=== PATIENT | female | born 1960 | race Caucasian/White ===

== ENCOUNTER 2019-08-23 20:50 | Observation (INO) | payer OTHER ==
[~2019-08-23] VITALS: Ht 172.7 cm; Wt 79.5 kg
[2019-08-23] MEDS ORDERED: DULO60CA6 PO (21:11)
[2019-08-23] MEDS ORDERED: METO50TA4 PO (21:11)
[2019-08-23] MEDS ORDERED: [UNRECOGNIZED DRUG - OTHER] (21:12)
[2019-08-23] MEDS ORDERED: IV NORMAL SALINE 1000ML BAG 1,000 ML IV ONE (21:15)
[2019-08-23 21:27] LABS: BASO # 0.1 x10^3/uL (0.0-0.2); BASO % 1 % (0-3); EOS # 0.4 x10^3/uL (0.0-0.7); EOS % 5 % (0-3); HEMATOCRIT 36.6 % (36.0-47.0); HEMOGLOBIN 12.4 g/dL (12.0-15.5); LYMPH # 3.4 x10^3/uL (1.0-4.8); LYMPH % 35 % (24-48); MEAN CORPUSCULAR HEMOGLOBIN 32 pg (25-35); MEAN CORPUSCULAR HGB CONC 34 g/dL (31-37); MEAN CORPUSCULAR VOLUME 95 fL (79-100); MONO # 0.8 x10^3/uL (0.0-1.1); MONO % 8 % (0-9); NEUT # 4.9 x10^3/uL (1.8-7.7); NEUT % 51 % (31-73); PLATELET COUNT 310 x10^3/uL (140-400); RED BLOOD COUNT 3.87 x10^6/uL (3.50-5.40); RED CELL DISTRIBUTION WIDTH 13.1 % (11.5-14.5); WHITE BLOOD COUNT 9.7 x10^3/uL (4.0-11.0)
[2019-08-23 21:36] LABS: PROTHROMBIN TIME PATIENT 12.4 SEC (11.7-14.0)
[2019-08-23 21:42] LABS: ALBUMIN 3.7 g/dL (3.4-5.0); ALBUMIN/GLOBULIN RATIO 1.1 (1.0-1.7); CALCIUM 8.7 mg/dL (8.5-10.1); GFR 56.6; TOTAL BILIRUBIN 0.3 mg/dL (0.2-1.0); TOTAL PROTEIN 7.1 g/dL (6.4-8.2)
[2019-08-23 21:44] LABS: POTASSIUM 2.9 mmol/L (3.5-5.1)
[2019-08-23] MEDS ORDERED: IV RINGERS,LACTATED 1000ML 1,000 ML IV SCH (22:11)
--- NOTE | 2019-08-23 22:11 | PDOC1 ---
History and Physical Date of Admission Date of Admission DATE: 08/23/19 TIME: 22:04 Identification/Chief Complaint Chief Complaint vaginal bleeding Source Source: Patient History of Present Illness History of Present Illness 59 y/o presented to ED with c/o heavy vaginal bleeding that occurred during coitus. She reports new partner and using silicone device during coitus and then sudden pain with large amount of bleeding. She denies any rectal penetration or instrumentation. No fever, chills or SOB. She reports dizziness and weakness. Past Medical History Cardiovascular: HTN Past Surgical History Past Surgical History: Other (D&C and LPSC resection endometriosis) Current Medications Current Medications Current Medications Sodium Chloride 1,000 ml @ 1,000 mls/hr 1X ONCE IV Last administered on 08/23/19at 21:20; Start 08/23/19 at 21:15; Stop 08/23/19 at 22:14 Active Scripts Active Reported [Estrogen Insert [id number]] Cymbalta (Duloxetine Hcl) 60 Mg Capsule.dr 1 Cap PO DAILY Toprol XL (Metoprolol Succinate) 50 Mg Tab.er.24h 50 Mg PO DAILY Allergies Allergies: Coded Allergies: nitrofurantoin (Verified Allergy, Intermediate, HIVES, 08/23/19) Tetracyclines (Verified Adverse Reaction, Mild, "REALLY BAD GAS", 08/23/19) ROS General: YES: Fatigue, Malaise; No: Chills, Night Sweats, Appetite, Other PSYCHOLOGICAL ROS: YES: Anxiety; No: Behavioral Disorder, Concentration difficultie, Decreased libido, Depression, Disorientation, Hallucinations, Hostility, Irritablity, Memory difficulties, Mood Swings, Obsessive thoughts, Physical abuse, Sexual abuse, S leep disturbances, Suicidal ideation, Other Eyes: Yes Uses glasses; No Blurry vision, No Decreased vision, No Double vision, No Dry eyes, No Excessive tearing, No Eye Pain, No Itchy Eyes, No Loss of vision, No P hotophobia, No Scotomata, No Uses contacts, No Other HEENT: No: Heacaches, Visual Changes, Hearing change, Nasal congestion, Nasal discharge, Oral lesions, Sinus pain, Sore Throat, Epistaxis, Sneezing, Snoring, Tinnitus, Vertigo, Vocal changes, Other ALLERGY AND IMMUNOLOGY: No: Hives, Insect Bite Sensitivity, Itchy/Watery Eyes, Nasal Congestion, Post Nasal Drip, Seasonal Allergies, Other Hematological and Lymphatic: No: Bleeding Problems, Blood Clots, Blood Transfusions, Brusing, Night Sweats, Pallor, Swollen Lymph Nodes, Other ENDOCRINE: No: Breast Changes, Galactorrhea, Hair Pattern Changes, Hot Flashes, Malaise/lethargy, Mood Swings, Palpitations, Polydipsia/polyuria, Skin Changes, Temperature Intolerance, Unexpected Weight Changes, Other Breast: No New/Changing Breast Lumps, No Nipple changes, No Nipple discharge, No Other Respiratory: No: Cough, Hemoptysis, Orthopnea, Pleuritic Pain, Shortness of breath, SOB with excertion, Sputum Changes, Stridor, Tachypnea, Wheezing, Other Cardiovascular: No Chest Pain, No Palpitations, No Orthopnea, No Paroxysmal Noc. Dyspnea, No Edema, No Lt Headedness, No Other Genitourinary: YES Pain, YES Other (vaginal bleeding) Skin: No Dry Skin, No Eczema, No Hair Changes, No Lumps, No Mole Changes, No Mottling, No Nail Changes, No Pruritus, No Rash, No Skin Lesion Changes, No Other, No Acne Physical Exam General: Alert, Oriented X3, Cooperative, moderate distress HEENT: Atraumatic Heart: S1S2 Abdomen: Normal bowel sounds, Soft, No tenderness, No masses Rectal Exam: other (nml) PELVIC: Nml ext genitalia, Nml ext vulva, Other (Left vaginal sidewall laceration. Packed with vaginal packing. No extension into abd cavity or retroperitoneal area.) Psych/Mental Status: Mental status NL Labs Labs Laboratory Tests Test 08/23/19 21:00 White Blood Count 9.7 x10^3/uL (4.0-11.0) Red Blood Count 3.87 x10^6/uL (3.50-5.40) Hemoglobin 12.4 g/dL (12.0-15.5) Hematocrit 36.6 % (36.0-47.0) Mean Corpuscular Volume 95 fL (79-100) Mean Corpuscular Hemoglobin 32 pg (25-35) Mean Corpuscular Hemoglobin Concent 34 g/dL (31-37) Red Cell Distribution Width 13.1 % (11.5-14.5) Platelet Count 310 x10^3/uL (140-400) Neutrophils (%) (Auto) 51 % (31-73) Lymphocytes (%) (Auto) 35 % (24-48) Monocytes (%) (Auto) 8 % (0-9) Eosinophils (%) (Auto) 5 % (0-3) Basophils (%) (Auto) 1 % (0-3) Neutrophils # (Auto) 4.9 x10^3/uL (1.8-7.7) Lymphocytes # (Auto) 3.4 x10^3/uL (1.0-4.8) Monocytes # (Auto) 0.8 x10^3/uL (0.0-1.1) Eosinophils # (Auto) 0.4 x10^3/uL (0.0-0.7) Basophils # (Auto) 0.1 x10^3/uL (0.0-0.2) Prothrombin Time 12.4 SEC (11.7-14.0) Prothromb Time International Ratio 1.0 (0.8-1.1) Activated Partial Thromboplast Time 23 SEC (24-38) Sodium Level 140 mmol/L (136-145) Potassium Level 2.9 mmol/L (3.5-5.1) Chloride Level 105 mmol/L (98-107) Carbon Dioxide Level 23 mmol/L (21-32) Anion Gap 12 (6-14) Blood Urea Nitrogen 14 mg/dL (7-20) Creatinine 1.0 mg/dL (0.6-1.0) Estimated GFR (Cockcroft-Gault) 56.6 BUN/Creatinine Ratio 14 (6-20) Glucose Level 146 mg/dL (70-99) Calcium Level 8.7 mg/dL (8.5-10.1) Total Bilirubin 0.3 mg/dL (0.2-1.0) Aspartate Amino Transf (AST/SGOT) 19 U/L (15-37) Alanine Aminotransferase (ALT/SGPT) 27 U/L (14-59) Alkaline Phosphatase 77 U/L (46-116) Total Protein 7.1 g/dL (6.4-8.2) Albumin 3.7 g/dL (3.4-5.0) Albumin/Globulin Ratio 1.1 (1.0-1.7) Ethyl Alcohol Level < 10 mg/dL (0-10) Laboratory Tests Test 08/23/19 21:00 White Blood Count 9.7 x10^3/uL (4.0-11.0) Red Blood Count 3.87 x10^6/uL (3.50-5.40) Hemoglobin 12.4 g/dL (12.0-15.5) Hematocrit 36.6 % (36.0-47.0) Mean Corpuscular Volume 95 fL (79-100) Mean Corpuscular Hemoglobin 32 pg (25-35) Mean Corpuscular Hemoglobin Concent 34 g/dL (31-37) Red Cell Distribution Width 13.1 % (11.5-14.5) Platelet Count 310 x10^3/uL (140-400) Neutrophils (%) (Auto) 51 % (31-73) Lymphocytes (%) (Auto) 35 % (24-48) Monocytes (%) (Auto) 8 % (0-9) Eosinophils (%) (Auto) 5 % (0-3) Basophils (%) (Auto) 1 % (0-3) Neutrophils # (Auto) 4.9 x10^3/uL (1.8-7.7) Lymphocytes # (Auto) 3.4 x10^3/uL (1.0-4.8) Monocytes # (Auto) 0.8 x10^3/uL (0.0-1.1) Eosinophils # (Auto) 0.4 x10^3/uL (0.0-0.7) Basophils # (Auto) 0.1 x10^3/uL (0.0-0.2) Prothrombin Time 12.4 SEC (11.7-14.0) Prothromb Time International Ratio 1.0 (0.8-1.1) Activated Partial Thromboplast Time 23 SEC (24-38) Sodium Level 140 mmol/L (136-145) Potassium Level 2.9 mmol/L (3.5-5.1) Chloride Level 105 mmol/L (98-107) Carbon Dioxide Level 23 mmol/L (21-32) Anion Gap 12 (6-14) Blood Urea Nitrogen 14 mg/dL (7-20) Creatinine 1.0 mg/dL (0.6-1.0) Estimated GFR (Cockcroft-Gault) 56.6 BUN/Creatinine Ratio 14 (6-20) Glucose Level 146 mg/dL (70-99) Calcium Level 8.7 mg/dL (8.5-10.1) Total Bilirubin 0.3 mg/dL (0.2-1.0) Aspartate Amino Transf (AST/SGOT) 19 U/L (15-37) Alanine Aminotransferase (ALT/SGPT) 27 U/L (14-59) Alkaline Phosphatase 77 U/L (46-116) Total Protein 7.1 g/dL (6.4-8.2) Albumin 3.7 g/dL (3.4-5.0) Albumin/Globulin Ratio 1.1 (1.0-1.7) Ethyl Alcohol Level < 10 mg/dL (0-10) VTE Prophylaxis Ordered VTE Prophylaxis Devices: No VTE Pharmacological Prophylaxi: No Assessment/Plan Assessment/Plan A: Vaginal wall laceration secondary to trauma P: Surgical repair of laceration in OR. MARIJA MANJARREZ Jr, MD Aug 23, 2019 22:11
[2019-08-23] MEDS ORDERED: MORPHINE SULFATE 2 MG/ML VIAL. IV PRN (22:15)
[2019-08-23] MEDS ORDERED: ONDANSETRON PF 4 MG/2 ML VIAL. IV PRN ×2 (22:15→23:00)
[2019-08-23] MEDS ORDERED: PROCHLORPERAZINE 10 MG/2 ML VIAL. IV PRN (22:15)
[2019-08-23] MEDS ORDERED: fentaNYL PF VIAL 100 MCG/2 ML VIAL IV PRN ×2 (22:15)
[2019-08-23] MEDS ORDERED: HYDROmorphone 2 MG/ML VIAL IV PRN (22:15)
--- NOTE | 2019-08-23 22:21 | RAD ---
STUDY: US PELVIS COMPLETE HISTORY: Vaginal bleeding. COMPARISON: None. TECHNIQUE: Complete pelvic ultrasound was performed with transabdominal and transvaginal probes. FINDINGS: The uterus measures 7.2 x 3.9 x 2.8 cm. The endometrial echo is difficult to delineate but appears to measure around 5 mm. Doppler assessment at the endometrium reveals no overt hypervascularity. No appreciable fluid within the endometrial canal but there does appear to be complex material at the location of the cervical canal. Neither ovary was able to be visualized. Suspected complex free fluid within the pelvis. IMPRESSION: Neither ovary was able to be visualized. Assessment of the uterus was limited though the endometrium appears to be at the upper limits of normal for patient age at 5 mm. There is the suggestion of complex debris within the cervical canal and within the deep pelvis of uncertain etiology. Electronically signed by: JOSEFINA SAUCEDO MD (08/23/2019 10:18 PM) [id number]
[2019-08-23] MEDS ORDERED: MORPHINE SULFATE 4 MG/ML VIAL. IV ONE (22:30)
[2019-08-23 22:38] LABS: HEMATOCRIT 27.3 % (36.0-47.0); HEMOGLOBIN 9.2 g/dL (12.0-15.5)
[2019-08-23] MEDS ORDERED: MORPHINE SULFATE 4 MG/ML VIAL. IV PRN (23:00)
--- NOTE | 2019-08-23 23:17 | PHYS DOC ---
Past Medical History Past Medical History: Depression, Fibromyalgia, Other Additional Past Medical Histor: ABNORMAL PAP 2019 "WATCHING IT" Past Surgical History: Other Additional Past Surgical Histo: CERVICAL BX 2019 Smoking Status: Never Smoker Alcohol Use: None Adult General Chief Complaint Chief Complaint: VAGINAL BLEEDING HPI HPI Patient is a 59 year old female with history of hypertension who presents the ED today complaining of vaginal bleeding that began while having sex. Patient reports having a new partner and using a silicone device during sex. Denies any rectal sex. Denies any rectal penetration. Denies any abdominal pain. Denies any nausea or vomiting. Review of Systems Review of Systems Constitutional: Denies fever or chills [] Eyes: Denies change in visual acuity, redness, or eye pain [] HENT: Denies nasal congestion or sore throat [] Respiratory: Denies cough or shortness of breath [] Cardiovascular: No additional information not addressed in HPI [] GI: Denies abdominal pain, nausea, vomiting, bloody stools or diarrhea [] Pelvic-reports vaginal bleeding : Denies dysuria or hematuria [] Musculoskeletal: Denies back pain or joint pain [] Integument: Denies rash or skin lesions [] Neurologic: Denies headache, focal weakness or sensory changes [] All other systems were reviewed and found to be within normal limits, except as documented in this note. Current Medications Current Medications Current Medications Medications (Trade) Dose Ordered Sig/Zenon Start Time Stop Time Status Last Admin Dose Admin Fentanyl Citrate (Fentanyl 2ml Vial) 50 mcg PRN Q5MIN PRN 08/23/19 22:15 08/24/19 22:14 Hydromorphone HCl (Dilaudid) 0.5 mg PRN Q10MIN PRN 08/23/19 22:15 08/24/19 22:14 Morphine Sulfate (Morphine Sulfate) 1 mg PRN Q10MIN PRN 08/23/19 22:15 08/24/19 22:14 Ondansetron HCl (Zofran) 4 mg PRN Q6HRS PRN 08/23/19 22:15 08/24/19 22:14 08/23/19 22:58 4 MG Prochlorperazine Edisylate (Compazine) 5 mg PACU PRN PRN 08/23/19 22:15 08/24/19 22:14 Ringer's Solution 1,000 ml @ 30 mls/hr Q24H 08/23/19 22:11 08/24/19 10:10 Sodium Chloride 1,000 ml @ 1,000 mls/hr 1X ONCE 08/23/19 21:15 08/23/19 22:14 DC 08/23/19 21:20 1,000 MLS/HR Allergies Allergies Allergies Coded Allergies Type Severity Reaction Last Updated Verified nitrofurantoin Allergy Intermediate HIVES 08/23/19 Yes Tetracyclines Adverse Reaction Mild "REALLY BAD GAS" 08/23/19 Yes Physical Exam Physical Exam Constitutional: Well developed, well nourished, no acute distress, non-toxic appearance. [] HENT: Normocephalic, atraumatic, bilateral external ears normal, oropharynx moist, no oral exudates, nose normal. [] Eyes: PERRLA, EOMI, conjunctiva normal, no discharge. [] Neck: Normal range of motion, no tenderness, supple, no stridor. [] Cardiovascular:Heart rate regular rhythm, no murmur [] Lungs & Thorax: Bilateral breath sounds clear to auscultation [] Abdomen: Bowel sounds normal, soft, no tenderness, no masses, no pulsatile mas ses. [] Pelvic exam Patient is covered with moderate amount of blood on high exterior vagina and her paper chucks. Pelvic exam was attempted, speculum was presented into the vaginal vault, there is moderate amount of blood pouring. DREDGE DECKHAND was consulted right away. Skin: Warm, dry, no erythema, no rash. [] Back: No tenderness, no CVA tenderness. [] Extremities: No tenderness, no cyanosis, no clubbing, ROM intact, no edema. [] Neurologic: Alert and oriented X 3, normal motor function, normal sensory function, no focal deficits noted. [] Psychologic: Affect normal, judgement normal, mood normal. [] Current Patient Data Vital Signs Vital Signs Date Time Temp Pulse Resp B/P (MAP) Pulse Ox O2 Delivery O2 Flow Rate FiO2 08/23/19 20:53 98.6 91 24 160/88 (112) 99 Room Air 98.6 Lab Values Laboratory Tests Test 08/23/19 21:00 White Blood Count 9.7 x10^3/uL (4.0-11.0) Red Blood Count 3.87 x10^6/uL (3.50-5.40) Hemoglobin 12.4 g/dL (12.0-15.5) Hematocrit 36.6 % (36.0-47.0) Mean Corpuscular Volume 95 fL (79-100) Mean Corpuscular Hemoglobin 32 pg (25-35) Mean Corpuscular Hemoglobin Concent 34 g/dL (31-37) Red Cell Distribution Width 13.1 % (11.5-14.5) Platelet Count 310 x10^3/uL (140-400) Neutrophils (%) (Auto) 51 % (31-73) Lymphocytes (%) (Auto) 35 % (24-48) Monocytes (%) (Auto) 8 % (0-9) Eosinophils (%) (Auto) 5 % (0-3) H Basophils (%) (Auto) 1 % (0-3) Neutrophils # (Auto) 4.9 x10^3/uL (1.8-7.7) Lymphocytes # (Auto) 3.4 x10^3/uL (1.0-4.8) Monocytes # (Auto) 0.8 x10^3/uL (0.0-1.1) Eosinophils # (Auto) 0.4 x10^3/uL (0.0-0.7) Basophils # (Auto) 0.1 x10^3/uL (0.0-0.2) Prothrombin Time 12.4 SEC (11.7-14.0) Prothrombin Time INR 1.0 (0.8-1.1) Activated Partial Thromboplast Time 23 SEC (24-38) L Sodium Level 140 mmol/L (136-145) Potassium Level 2.9 mmol/L (3.5-5.1) *L Chloride Level 105 mmol/L (98-107) Carbon Dioxide Level 23 mmol/L (21-32) Anion Gap 12 (6-14) Blood Urea Nitrogen 14 mg/dL (7-20) Creatinine 1.0 mg/dL (0.6-1.0) Estimated GFR (Cockcroft-Gault) 56.6 BUN/Creatinine Ratio 14 (6-20) Glucose Level 146 mg/dL (70-99) H Calcium Level 8.7 mg/dL (8.5-10.1) Total Bilirubin 0.3 mg/dL (0.2-1.0) Aspartate Amino Transferase (AST) 19 U/L (15-37) Alanine Aminotransferase (ALT) 27 U/L (14-59) Alkaline Phosphatase 77 U/L (46-116) Total Protein 7.1 g/dL (6.4-8.2) Albumin 3.7 g/dL (3.4-5.0) Albumin/Globulin Ratio 1.1 (1.0-1.7) Ethyl Alcohol Level < 10 mg/dL (0-10) Laboratory Tests 08/23/19 21:00 Laboratory Tests 08/23/19 21:00 EKG EKG [] Radiology/Procedures Radiology/Procedures [] Course & Med Decision Making Course & Med Decision Making Pertinent Labs and Imaging studies reviewed. (See chart for details) This is a 59-year-old female patient presenting to the ED today with vaginal bleeding that began while having sex. See HPI. Patient arrives in the ED with moderate amount of bleeding. Consulted DREDGE DECKHAND right away. 2133 Dr. Hsieh packed her vagina and will take her to surgery. Patient was given 2 L of IV fluid. Initial Hemoglobin of 12.4, HCT 36.6, type and screen was done CMP with K of 2.9 NS with K ordered Repeat H&H 9.2, 27.3 Dr. Alberto aware of his condition. Dragon Disclaimer Dragon Disclaimer This electronic medical record was generated, in whole or in part, using a voice recognition dictation system. Departure Departure Impression: Primary Impression: Vaginal bleeding Additional Impression: Vaginal laceration Disposition: 09 ADMITTED INPATIENT Condition: STABLE Referrals: NO PCP (PCP) Problem Qualifiers Additional Impression: Vaginal laceration Vaginal laceration type: obstetric Perineal laceration presence: with perineal laceration Perineal laceration degree: laceration of unspecified degree Qualified Codes: O70.9 - Perineal laceration during delivery, unspecified PATOSYDNIEALVIN [employer]TER Aug 23, 2019 23:17
[2019-08-23] MEDS ORDERED: PROPOFOL 20 ML IV ONE (23:52)
[2019-08-23] MEDS ORDERED: SEVOFLURANE 31 TO 60 MINUTES. IH ONE (23:52)
[2019-08-23] MEDS ORDERED: fentaNYL PF VIAL 100 MCG/2 ML VIAL ONE (23:52)
[2019-08-23] MEDS ORDERED: DEXAMETHASONE SOD PHOS 4 MG/ML VIAL ONE (23:53)
[2019-08-23] MEDS ORDERED: LIDOCAINE 2% PF 5 ML VIAL. ONE (23:53)
[2019-08-23] MEDS ORDERED: ONDANSETRON PF 4 MG/2 ML VIAL. ONE (23:53)
[2019-08-23] MEDS ORDERED: SCOPOLAMINE 1.5MG PATCH. TD ONE (23:59)
[2019-08-24] VITALS (18 sets, daily range): BP systolic 117–155; BP diastolic 46–84
[2019-08-24] MEDS ORDERED: FAMOTIDINE 20 MG/2 ML VIAL ONE
--- NOTE | 2019-08-24 00:52 | PDOC ---
BRIEF OPERATIVE NOTE Date: Aug 24, 2019 Pre-Op Diagnosis Vaginal sidewall laceration Post-Op Diagnosis SAme Procedure Performed Vaginal Laceration Repair Surgeon Dr. Hsieh Anesthesia Type: General Blood Loss 1, 500 ml prior to surgery. 400 ml during surgery. Specimens Obtained none Findings vaginal sidewall laceration; Left side. Complications none Operative Note see dictation MARIJA HSIEH Jr, MD Aug 24, 2019 00:52
[2019-08-24] MEDS ORDERED: ONDANSETRON PF 4 MG/2 ML VIAL. IV PRN (01:00)
[2019-08-24] MEDS ORDERED: SIMETHICONE 80 MG TAB.CHEW PO PRN (01:00)
[2019-08-24] MEDS ORDERED: OPIUM/BELLADONNA 30/16.2MG SUPP.RECT. PR PRN (01:00)
[2019-08-24] MEDS ORDERED: oxyCODONE/APAP 5/325 1 TAB TABLET PO PRN (01:00)
[2019-08-24] MEDS ORDERED: 0.9 % SODIUM CHLORIDE 10 ML DISP.SYRIN. IV PRN (01:00)
[2019-08-24] MEDS ORDERED: diphenhydrAMINE 50 MG/ML VIAL IV PRN (01:00)
[2019-08-24] MEDS ORDERED: PROCHLORPERAZINE 10 MG/2 ML VIAL. IV PRN (01:00)
[2019-08-24] MEDS ORDERED: diphenhydrAMINE HCL 25 MG CAPSULE PO PRN (01:00)
[2019-08-24] MEDS ORDERED: KETOROLAC 30 MG/ML VIAL. IV PRN (01:00)
[2019-08-24] MEDS ORDERED: ZOLPIDEM 5 MG TABLET. PO PRN (01:00)
[2019-08-24] MEDS ORDERED: CALCIUM CARBONATE 500 MG TAB.CHEW PO PRN (01:00)
[2019-08-24] MEDS ORDERED: DEXTROSE 50% 25 GM / 50ML DISP.SYRIN. IV PRN (01:00)
--- NOTE | 2019-08-24 01:22 | OP ---
DATE OF SURGERY: 08/23/2019 PREOPERATIVE DIAGNOSIS: Vaginal sidewall laceration. POSTOPERATIVE DIAGNOSIS: Vaginal sidewall laceration. PROCEDURE: Vaginal laceration repair. SURGEON: Marija Hsieh MD ANESTHESIA: GETA. ESTIMATED BLOOD LOSS: 400 mL during surgery. There was about 1500 mL blood loss prior to surgery. FINDINGS: Vaginal sidewall laceration on the left side. SUMMARY: A 59-year-old female who had a traumatic experience with colitis involving vaginal laceration, which she had a large amount of bleeding. She presented to the Emergency Department, had about 1500 mL of blood loss just in the Emergency Department during the evaluation. She was counseled on risks, benefits and expectations of surgical repair of vaginal sidewall laceration and further examination under anesthesia and voiced clear understanding to proceed. DESCRIPTION OF PROCEDURE: The patient was taken to surgery suite and placed in dorsal lithotomy position. She was prepped with Betadine solution and draped in sterile fashion. After adequate anesthesia, weighted speculum and curved Oleksandr placed vaginally. The lesion was found on the left vaginal sidewall in which two [id number] sutures were placed to control the active bleeding. Once the bleeding was controlled continuous suture was used with 2-0 Vicryl in a running fashion to repair the vaginal sidewall laceration. Two additional [id number] sutures were placed to better reapproximate the vaginal sidewall. The remainder of the vaginal vault was explored and did not find any lacerations or trauma. Perianal area was explored and there was no evidence of trauma or bleeding. Moist vaginal packing was placed. The patient tolerated the procedure well and was taken to recovery room in stable condition. Sponge and needle count correct x 3. MARIJA HSIEH MD DR: BONNIE/sandra JOB#: [id number] / [id number]
[2019-08-24] MEDS ORDERED: ALBUMIN HUMAN 5% 500 ML IV ONE ×2 (01:27→01:30)
--- NOTE | 2019-08-24 01:31 | PDOC ---
Date and Time POst op 45 minutes. BP declined to 89/44, no heart rate increase (on beta susy). No active bleeding. Believe she is still hypovolemic. Will Rx with albumin and after it has infused recheck Hb. Current Medications Current Medications Sodium Chloride 1,000 ml @ 1,000 mls/hr 1X ONCE IV Last administered on 08/23/19at 21:20; Start 08/23/19 at 21:15; Stop 08/23/19 at 22:14; Status DC Ondansetron HCl (Zofran) 4 mg PRN Q6HRS PRN IV NAUSEA/VOMITING Last administered on 08/23/19at 22:58; Start 08/23/19 at 22:15; Stop 08/24/19 at 22:14 Fentanyl Citrate (Fentanyl 2ml Vial) 25 mcg PRN Q5MIN PRN IV MILD PAIN 1-3; Start 08/23/19 at 22:15; Stop 08/24/19 at 22:14 Fentanyl Citrate (Fentanyl 2ml Vial) 50 mcg PRN Q5MIN PRN IV MODERATE TO SEVERE PAIN; Start 08/23/19 at 22:15; Stop 08/24/19 at 22:14 Morphine Sulfate (Morphine Sulfate) 1 mg PRN Q10MIN PRN IV SEVERE PAIN 7-10; Start 08/23/19 at 22:15; Stop 08/24/19 at 22:14 Ringer's Solution 1,000 ml @ 30 mls/hr Q24H IV Last administered on 08/24/19at 01:19; Start 08/23/19 at 22:11; Stop 08/24/19 at 10:10 Hydromorphone HCl (Dilaudid) 0.5 mg PRN Q10MIN PRN IV SEV PAIN, Second choice; Start 08/23/19 at 22:15; Stop 08/24/19 at 22:14 Prochlorperazine Edisylate (Compazine) 5 mg PACU PRN PRN IV NAUSEA, MRX1; Start 08/23/19 at 22:15; Stop 08/24/19 at 22:14 Morphine Sulfate (Morphine Sulfate) 4 mg 1X ONCE IV Last administered on 08/23/19at 22:55; Start 08/23/19 at 22:30; Stop 08/23/19 at 22:41; Status DC Ondansetron HCl (Zofran) 4 mg PRN Q8HRS PRN IV NAUSEA/VOMITING; Start 08/23/19 at 23:00; Stop 08/24/19 at 22:59 Morphine Sulfate (Morphine Sulfate) 4 mg PRN Q2HR PRN IV PAIN; Start 08/23/19 at 23:00; Stop 08/24/19 at 22:59 Potassium Chloride/Sodium Chloride 1,000 ml @ 75 mls/hr 1X ONCE IV ; Start 08/23/19 at 23:00; Stop 08/24/19 at 12:19 Fentanyl Citrate (Fentanyl 2ml Vial) 100 mcg STK-MED ONCE .ROUTE ; Start 08/23/19 at 23:52; Stop 08/23/19 at 23:53; Status DC Sevoflurane (Ultane) 30 ml STK-MED ONCE IH ; Start 08/23/19 at 23:52; Stop 08/23/19 at 23:53; Status DC Propofol 20 ml @ As Directed STK-MED ONCE IV ; Start 08/23/19 at 23:52; Stop 08/23/19 at 23:53; Status DC Dexamethasone Sodium Phosphate (Decadron) 4 mg STK-MED ONCE .ROUTE ; Start 08/23/19 at 23:53; Stop 08/23/19 at 23:53; Status DC Ondansetron HCl (Zofran) 4 mg STK-MED ONCE .ROUTE ; Start 08/23/19 at 23:53; St op 08/23/19 at 23:53; Status DC Lidocaine HCl (Lidocaine Pf 2% Vial) 5 ml STK-MED ONCE .ROUTE ; Start 08/23/19 at 23:53; Stop 08/23/19 at 23:53; Status DC Scopolamine (Transderm-Scop) 1 patch STK-MED ONCE TD ; Start 08/23/19 at 23:59; Stop 08/24/19 at 00:00; Status DC Famotidine (Pepcid Vial) 20 mg STK-MED ONCE .ROUTE ; Start 08/24/19 at 00:00; Stop 08/24/19 at 00:00; Status DC Calcium Carbonate/ Glycine (Tums) 500 mg PRN Q3HRS PRN PO HEARTBURN / GAS; Start 08/24/19 at 01:00 Simethicone (Gas-X) 80 mg PRN AFTMEALHC PRN PO GAS / BLOATING; Start 08/24/19 at 01:00 Zolpidem Tartrate (Ambien) 5 mg PRN QHS PRN PO INSOMNIA, MAY REPEAT IN 1HR; Start 08/24/19 at 01:00 Diphenhydramine HCl (Benadryl) 25 mg PRN Q6HRS PRN PO ITCHING; Start 08/24/19 at 01:00 Diphenhydramine HCl (Benadryl) 25 mg PRN Q6HRS PRN IV ITCHING; Start 08/24/19 at 01:00 Sodium Chloride (Normal Saline Flush) 3 ml QSHIFT PRN IV AFTER MEDS AND BLOOD DRAWS; Start 08/24/19 at 01:00 Dextrose (Dextrose 50%-Water Syringe) 12.5 gm PRN Q15MIN PRN IV SEE COMMENTS; Start 08/24/19 at 01:00 Oxycodone/ Acetaminophen (Percocet 5/325) 2 tab PRN Q4HRS PRN PO MODERATE PAIN, SEVERE PAIN; Start 08/24/19 at 01:00 Ketorolac Tromethamine (Toradol 30mg Vial) 30 mg PRN Q6HRS PRN IV PAIN; Start 08/24/19 at 01:00; Stop 08/29/19 at 00:59 Gabapentin (Neurontin) 600 mg Q8HRS PO ; Start 08/24/19 at 06:00 Ondansetron HCl (Zofran) 4 mg PRN Q6HRS PRN IV NAUESA, 1ST CHOICE; Start 08/24/19 at 01:00 Prochlorperazine Edisylate (Compazine) 5 mg PRN Q6HRS PRN IV N/V, 2nd Choice, MR X1; Start 08/24/19 at 01:00 Belladonna Alkaloids/Opium (B & O) 1 supp PRN Q12HR PRN TN BLADDER SPASM; Start 08/24/19 at 01:00 Albumin Human 500 ml @ 125 mls/hr 1X ONCE IV ; Start 08/24/19 at 01:30; Stop 08/24/19 at 05:29; Status UNV Albumin Human 500 ml @ As Directed STK-MED ONCE IV ; Start 08/24/19 at 01:27; Stop 08/24/19 at 01:27; Status DC Active Scripts Active Reported [Estrogen Insert 2XWK] Cymbalta (Duloxetine Hcl) 60 Mg Capsule.dr 1 Cap PO DAILY Toprol XL (Metoprolol Succinate) 50 Mg Tab.er.24h 50 Mg PO DAILY Pertinent Labs/Test Laboratory Tests Test 08/23/19 21:00 08/23/19 22:30 White Blood Count 9.7 x10^3/uL (4.0-11.0) Red Blood Count 3.87 x10^6/uL (3.50-5.40) Hemoglobin 12.4 g/dL (12.0-15.5) 9.2 g/dL (12.0-15.5) Hematocrit 36.6 % (36.0-47.0) 27.3 % (36.0-47.0) Mean Corpuscular Volume 95 fL (79-100) Mean Corpuscular Hemoglobin 32 pg (25-35) Mean Corpuscular Hemoglobin Concent 34 g/dL (31-37) Red Cell Distribution Width 13.1 % (11.5-14.5) Platelet Count 310 x10^3/uL (140-400) Neutrophils (%) (Auto) 51 % (31-73) Lymphocytes (%) (Auto) 35 % (24-48) Monocytes (%) (Auto) 8 % (0-9) Eosinophils (%) (Auto) 5 % (0-3) Basophils (%) (Auto) 1 % (0-3) Neutrophils # (Auto) 4.9 x10^3/uL (1.8-7.7) Lymphocytes # (Auto) 3.4 x10^3/uL (1.0-4.8) Monocytes # (Auto) 0.8 x10^3/uL (0.0-1.1) Eosinophils # (Auto) 0.4 x10^3/uL (0.0-0.7) Basophils # (Auto) 0.1 x10^3/uL (0.0-0.2) Prothrombin Time 12.4 SEC (11.7-14.0) Prothromb Time International Ratio 1.0 (0.8-1.1) Activated Partial Thromboplast Time 23 SEC (24-38) Sodium Level 140 mmol/L (136-145) Potassium Level 2.9 mmol/L (3.5-5.1) Chloride Level 105 mmol/L (98-107) Carbon Dioxide Level 23 mmol/L (21-32) Anion Gap 12 (6-14) Blood Urea Nitrogen 14 mg/dL (7-20) Creatinine 1.0 mg/dL (0.6-1.0) Estimated GFR (Cockcroft-Gault) 56.6 BUN/Creatinine Ratio 14 (6-20) Glucose Level 146 mg/dL (70-99) Calcium Level 8.7 mg/dL (8.5-10.1) Total Bilirubin 0.3 mg/dL (0.2-1.0) Aspartate Amino Transf (AST/SGOT) 19 U/L (15-37) Alanine Aminotransferase (ALT/SGPT) 27 U/L (14-59) Alkaline Phosphatase 77 U/L (46-116) Total Protein 7.1 g/dL (6.4-8.2) Albumin 3.7 g/dL (3.4-5.0) Albumin/Globulin Ratio 1.1 (1.0-1.7) Ethyl Alcohol Level < 10 mg/dL (0-10) Laboratory Tests Test 08/23/19 21:00 08/23/19 22:30 White Blood Count 9.7 x10^3/uL (4.0-11.0) Red Blood Count 3.87 x10^6/uL (3.50-5.40) Hemoglobin 12.4 g/dL (12.0-15.5) 9.2 g/dL (12.0-15.5) Hematocrit 36.6 % (36.0-47.0) 27.3 % (36.0-47.0) Mean Corpuscular Volume 95 fL (79-100) Mean Corpuscular Hemoglobin 32 pg (25-35) Mean Corpuscular Hemoglobin Concent 34 g/dL (31-37) Red Cell Distribution Width 13.1 % (11.5-14.5) Platelet Count 310 x10^3/uL (140-400) Neutrophils (%) (Auto) 51 % (31-73) Lymphocytes (%) (Auto) 35 % (24-48) Monocytes (%) (Auto) 8 % (0-9) Eosinophils (%) (Auto) 5 % (0-3) Basophils (%) (Auto) 1 % (0-3) Neutrophils # (Auto) 4.9 x10^3/uL (1.8-7.7) Lymphocytes # (Auto) 3.4 x10^3/uL (1.0-4.8) Monocytes # (Auto) 0.8 x10^3/uL (0.0-1.1) Eosinophils # (Auto) 0.4 x10^3/uL (0.0-0.7) Basophils # (Auto) 0.1 x10^3/uL (0.0-0.2) Prothrombin Time 12.4 SEC (11.7-14.0) Prothromb Time International Ratio 1.0 (0.8-1.1) Activated Partial Thromboplast Time 23 SEC (24-38) Sodium Level 140 mmol/L (136-145) Potassium Level 2.9 mmol/L (3.5-5.1) Chloride Level 105 mmol/L (98-107) Carbon Dioxide Level 23 mmol/L (21-32) Anion Gap 12 (6-14) Blood Urea Nitrogen 14 mg/dL (7-20) Creatinine 1.0 mg/dL (0.6-1.0) Estimated GFR (Cockcroft-Gault) 56.6 BUN/Creatinine Ratio 14 (6-20) Glucose Level 146 mg/dL (70-99) Calcium Level 8.7 mg/dL (8.5-10.1) Total Bilirubin 0.3 mg/dL (0.2-1.0) Aspartate Amino Transf (AST/SGOT) 19 U/L (15-37) Alanine Aminotransferase (ALT/SGPT) 27 U/L (14-59) Alkaline Phosphatase 77 U/L (46-116) Total Protein 7.1 g/dL (6.4-8.2) Albumin 3.7 g/dL (3.4-5.0) Albumin/Globulin Ratio 1.1 (1.0-1.7) Ethyl Alcohol Level < 10 mg/dL (0-10) LAST VITALS Vital Signs Date Time Temp Pulse Resp B/P (MAP) Pulse Ox O2 Delivery O2 Flow Rate FiO2 08/24/19 01:21 96.9 85 20 89/44 96 Room Air 96.9 FARHAD ALCANTARA MD Aug 24, 2019 01:31
[2019-08-24 02:06] LABS: BASO % 0 % (0-3); EOS % 0 % (0-3); LYMPH % 6 % (24-48); MEAN CORPUSCULAR HEMOGLOBIN 32 pg (25-35); MEAN CORPUSCULAR HGB CONC 33 g/dL (31-37); MEAN CORPUSCULAR VOLUME 96 fL (79-100); MONO # 0.9 x10^3/uL (0.0-1.1); MONO % 6 % (0-9); NEUT # 14.8 x10^3/uL (1.8-7.7); NEUT % 88 % (31-73); PLATELET COUNT 171 x10^3/uL (140-400); RED BLOOD COUNT 2.17 x10^6/uL (3.50-5.40); RED CELL DISTRIBUTION WIDTH 13.3 % (11.5-14.5); WHITE BLOOD COUNT 16.7 x10^3/uL (4.0-11.0)
[2019-08-24 02:08] LABS: HEMATOCRIT 20.7 % (36.0-47.0); HEMOGLOBIN 6.9 g/dL (12.0-15.5)
[2019-08-24 02:38] LABS: CALCIUM 7.3 mg/dL (8.5-10.1); CREATININE 0.7 mg/dL (0.6-1.0); GFR 85.4; POTASSIUM 3.8 mmol/L (3.5-5.1)
[2019-08-24 02:56] LABS: % BANDS 4 % (0-9); % LYMPHS 3 % (24-48); % MONOS 3 % (0-10); % SEGS 90 % (35-66)
[2019-08-24 02:57] LABS: PLT ESTIMATE ADEQUATE (ADEQUATE)
[2019-08-24] MEDS: GABAPENTIN 300 MG CAPSULE. PO SCH ×2 (06:00→13:06)
[2019-08-24] MEDS: FERROUS SULFATE 325 MG TABLET. PO SCH ×2 (09:29→17:38)
[2019-08-24] MEDS: IBUPROFEN 400 MG TABLET. PO PRN ×2 (09:30→17:39)
[2019-08-24 12:08] LABS: HEMATOCRIT 30.3 % (36.0-47.0); RED BLOOD COUNT 3.37 x10^6/uL (3.50-5.40); RED CELL DISTRIBUTION WIDTH 16.5 % (11.5-14.5); WHITE BLOOD COUNT 16.3 x10^3/uL (4.0-11.0)
[2019-08-24 12:14] LABS: HEMOGLOBIN 10.4 g/dL (12.0-15.5)
--- NOTE | 2019-08-24 12:30 | NUR ---
Vaginal packing removed per orders and minimal blood noted on packing. Instructed pt to call if she has any bleeding at all. Pt verbalized understanding. Hgh stable at 10.4/30.3. Dr. sHieh will be here later today to see pt and possibly discharge her home.
[2019-08-24] MEDS ORDERED: IBUP-1027 PO (17:24)
[2019-08-24] MEDS ORDERED: FERR325T72 PO (17:24)
--- NOTE | 2019-08-24 17:24 | DISCH ---
DISCHARGE INSTRUCTIONS Condition on Discharge Condition on Discharge: Stable Activity After Discharge Activity Instructions for Disc: Activity as tolerated Lifting Instructions after Dis: No heavy lifting Driving Instructions after Dis: Do not drive today Diet after Discharge Diet after Discharge: Regular Contacting the DRKevin after DC Call your doctor for: Concerns you may have Follow-Up Follow up with: Dr. Hsieh in 1 week. MARIJA HSIEH Jr, MD Aug 24, 2019 17:24
--- NOTE | 2019-08-24 17:50 | NUR ---
Discharge and follow up instructions reviewed and given to pt along with 2 RX for iron and ibuprofen. Pt denied any complaints or questions at time of discharge. Pt taken out of the hospital per W/C with her son by her side who was going to drive her car home for her.
== END 2019-08-24 17:50 | disposition home or self-care (01) ==
LOC: ER 20:50 → 3 NORTH 22:19 → INTOOBSV 22:19
PROVIDERS: ADMIT Obstetrics & Gynecology; ATTEND Obstetrics & Gynecology
DX: S31.41XA Laceration without foreign body of vagina and vulva, initial encounter (principal); I10 Essential (primary) hypertension; X58.XXXA Exposure to other specified factors, initial encounter; Y93.89 Activity, other specified; Y92.89 Other specified places as the place of occurrence of the external cause; Y99.8 Other external cause status
CPT/HCPCS: 36415; 36430; 57200; 76856; 80048; 80053; 85007; 85014; 85018; 85025; 85027; 85610; 85730; 86850; 86900; 86901; 86920; 96374; 96375; 99284; A7015; G0378; G0480; J1100; J1885; J2001; J2270; J2405; J2704; J3010; J3490; J7030; J7120; P9016; P9045; G0379